=== PATIENT | male | born 1990 | race Caucasian/White ===

== ENCOUNTER 2018-02-15 22:02 | Inpatient (IN) | payer SELFPAY ==
[~2018-02-15] VITALS: Ht 185.4 cm; Wt 83.9 kg
[2018-02-15] MEDS ORDERED: SODIUM CHLORIDE 0.9% 1,000 ML IV ONE (23:15)
[2018-02-16 00:40] LABS: BASOPHILS % 0.3 % (0.0-2.0); EOSINOPHILS % 1.1 % (0.0-5.0); HEMATOCRIT. 43.3 % (42.0-52.0); HEMOGLOBIN. 15.3 g/dL (14.0-18.0); MEAN CORPUSCULAR HEMOGLOBIN 32.5 pg (28.0-32.0); MEAN CORPUSCULAR VOLUME 91.8 fL (80.0-94.0); MEAN PLATELET VOLUME 8.1 fl (7.4-10.4); MONOCYTES % 4.7 % (2.0-8.0); NEUTROPHILS % 77.9 % (40.0-76.0); PLATELET 253 x1000/uL (130-400); RED BLOOD CELL COUNT 4.72 mill/uL (4.7-6.1); RED CELL DISTRIBUTION WIDTH 12.2 % (11.6-14.6)
[2018-02-16 00:44] LABS: CHLORIDE 106 mEq/L (98-107)
[2018-02-16 00:48] LABS: INR 1.1; PARTIAL THROMBOPLASTIN TIME 28.7 sec (23.4-31.0); PROTHROMBIN TIME 11.4 sec (9.4-11.6)
[2018-02-16 00:50] LABS: ETHANOL BLOOD < 10 mg/dL
[2018-02-16 00:53] LABS: AMMONIA 25 uMol/L (<32)
[2018-02-16 01:11] LABS: CLARITY URINE CLEAR (CLEAR); COLOR URINE YELLOW (YELLOW); KETONES URINE NEGATIVE (NEGATIVE); LEUKOCYTE ESTERASE URINE NEGATIVE (NEGATIVE); NITRITE URINE NEGATIVE (NEGATIVE); OCCULT BLOOD URINE NEGATIVE (NEGATIVE); PROTEIN URINE NEGATIVE (NEGATIVE); SPECIFIC GRAVITY URINE 1.018 (1.005-1.030); UROBILINOGEN URINE 0.2 E.U./dL (0.2-1.0)
[2018-02-16 01:24] LABS: *AMPHETAMINES SCREEN URINE NEGATIVE (NEGATIVE); *BARBITURATES SCREEN URINE NEGATIVE (NEGATIVE); *BENZODIAZEPINES SCREEN URINE PRESUMTIVE POSITIVE (NEGATIVE); *COCAINE SCREEN URINE PRESUMTIVE POSITIVE (NEGATIVE); METHADONE URINE SCREEN NEGATIVE (NEGATIVE); OPIATES URINE SCREEN NEGATIVE (NEGATIVE)
[2018-02-16 01:25] LABS: CANNABINOID URINE SCREEN PRESUMTIVE POSITIVE (NEGATIVE); PHENCYCLIDINE URINE SCREEN NEGATIVE (NEGATIVE)
[2018-02-16 08:50] VITALS: BP 116/81
[2018-02-16 09:15] VITALS: BP 116/81
[2018-02-16] MEDS: LEVETIRACETAM 500MG TABLET PO SCH ×2 (11:15→17:10)
[2018-02-16 12:00] VITALS: BP 118/72
[2018-02-16] MEDS ORDERED: VENL-180 PO (12:21)
[2018-02-16] MEDS ORDERED: ALPR0.25 MT (12:25)
[2018-02-16 13:35] LABS: BASOPHILS % 0.5 % (0.0-2.0); EOSINOPHILS % 2.8 % (0.0-5.0); HEMATOCRIT. 41.4 % (42.0-52.0); HEMOGLOBIN. 14.6 g/dL (14.0-18.0); LYMPHOCYTES % 33.4 % (20.0-50.0); MEAN CORPUSCULAR HEMOGLOBIN 32.5 pg (28.0-32.0); MEAN CORPUSCULAR VOLUME 92.2 fL (80.0-94.0); MEAN PLATELET VOLUME 8.3 fl (7.4-10.4); MONOCYTES % 7.8 % (2.0-8.0); NEUTROPHILS % 55.5 % (40.0-76.0); PLATELET 247 x1000/uL (130-400); RED BLOOD CELL COUNT 4.49 mill/uL (4.7-6.1); RED CELL DISTRIBUTION WIDTH 11.8 % (11.6-14.6)
[2018-02-16 13:53] LABS: CHLORIDE 106 mEq/L (98-107)
[2018-02-16 14:03] LABS: CREATINE KINASE 898 IU/L (39-308)
[2018-02-16 16:00] VITALS: BP 109/62
[2018-02-16] MEDS: NICOTINE 7MG PATCH TD SCH (17:10)
[2018-02-16] MEDS ORDERED: SODIUM CHLORIDE 0.9% 1,000 ML IV SCH (17:30)
[2018-02-16 20:00] VITALS: BP 101/66
[2018-02-16] MEDS: LORAZEPAM 2MG/ML CPJ IV PRN (21:03)
[2018-02-16] MEDS ORDERED: ALPR0.25 PO (21:23)
[2018-02-17] VITALS: BP 99/65
[2018-02-17 04:00] VITALS: BP 100/73
[2018-02-17] MEDS: LORAZEPAM 2MG/ML CPJ IV PRN ×2 (05:41→15:28)
[2018-02-17 08:00] VITALS: BP 98/57
[2018-02-17] MEDS: LEVETIRACETAM 500MG TABLET PO SCH ×2 (08:30→16:43)
[2018-02-17] MEDS: NICOTINE 7MG PATCH TD SCH (08:30)
[2018-02-17] MEDS: SODIUM CHLORIDE 0.45% 1,000 ML IV SCH ×2 (08:31→16:10)
[2018-02-17 12:00] VITALS: BP 117/73
[2018-02-17] MEDS ORDERED: NA PHOS,M-B/NA PHOS,DI-BA ENEMA 118ML PR PRN (12:30)
[2018-02-17] MEDS ORDERED: ACETAMINOPHEN 650MG SUPP PR PRN (12:30)
[2018-02-17] MEDS ORDERED: DIPHENHYDRAMINE 50MG/ML VIAL IV PRN (12:30)
[2018-02-17] MEDS ORDERED: GUAIFENESIN 200MG/10ML SUGAR FREE UDC PO PRN (12:30)
[2018-02-17] MEDS ORDERED: DOCUSATE SODIUM 100MG CAPSULE PO PRN (12:30)
[2018-02-17] MEDS ORDERED: ACETAMINOPHEN 325MG TABLET PO PRN (12:30)
[2018-02-17] MEDS ORDERED: ACETAMINOPHEN 650MG/20.3ML UDC GT PRN (12:30)
[2018-02-17] MEDS ORDERED: MAGNESIUM/ALUMINUM HYDROXIDE/SIMETHICONE 30ML UDC PO PRN (12:30)
[2018-02-17] MEDS ORDERED: CLONIDINE 0.1MG TABLET PO PRN (12:30)
[2018-02-17] MEDS ORDERED: HYDROCODONE/ACETAMINOPHEN 5/325MG TABLET PO PRN (12:30)
[2018-02-17] MEDS ORDERED: IPRATROPIUM/ALBUTEROL 0.5-3(2.5)MG/3ML NEB INH PRN (12:30)
[2018-02-17 13:22] LABS: BASOPHILS % 0.7 % (0.0-2.0); EOSINOPHILS % 3.1 % (0.0-5.0); HEMATOCRIT. 40.3 % (42.0-52.0); HEMOGLOBIN. 14.4 g/dL (14.0-18.0); LYMPHOCYTES % 37.7 % (20.0-50.0); MEAN CORPUSCULAR HEMOGLOBIN 32.8 pg (28.0-32.0); MEAN CORPUSCULAR VOLUME 91.5 fL (80.0-94.0); MEAN PLATELET VOLUME 8.5 fl (7.4-10.4); MONOCYTES % 6.3 % (2.0-8.0); NEUTROPHILS % 52.2 % (40.0-76.0); PLATELET 238 x1000/uL (130-400); RED CELL DISTRIBUTION WIDTH 12.1 % (11.6-14.6)
[2018-02-17 13:32] LABS: CHLORIDE 105 mEq/L (98-107)
[2018-02-17 13:42] LABS: CREATINE KINASE 519 IU/L (39-308)
[2018-02-17] MEDS: SODIUM CHLORIDE 0.9% INJ 3ML FLUSH IVF SCH ×2 (14:00→22:00)
[2018-02-17 20:02] VITALS: BP 112/75
[2018-02-17 23:55] VITALS: BP 115/80
[2018-02-18] MEDS: LORAZEPAM 2MG/ML CPJ IV PRN ×7 (01:05→21:26)
[2018-02-18 04:00] VITALS: BP 109/66
[2018-02-18] MEDS: SODIUM CHLORIDE 0.9% INJ 3ML FLUSH IVF SCH ×3 (06:17→21:26)
[2018-02-18 07:26] LABS: BASOPHILS % 0.6 % (0.0-2.0); EOSINOPHILS % 2.9 % (0.0-5.0); HEMATOCRIT. 43.1 % (42.0-52.0); HEMOGLOBIN. 15.3 g/dL (14.0-18.0); LYMPHOCYTES % 38.5 % (20.0-50.0); MEAN CORPUSCULAR HEMOGLOBIN 32.6 pg (28.0-32.0); MEAN PLATELET VOLUME 8.2 fl (7.4-10.4); MONOCYTES % 7.8 % (2.0-8.0); NEUTROPHILS % 50.2 % (40.0-76.0); PLATELET 240 x1000/uL (130-400); RED BLOOD CELL COUNT 4.69 mill/uL (4.7-6.1); RED CELL DISTRIBUTION WIDTH 12.2 % (11.6-14.6)
[2018-02-18 08:00] VITALS: BP 112/66
[2018-02-18] MEDS: NICOTINE 7MG PATCH TD SCH (08:31)
[2018-02-18] MEDS: LEVETIRACETAM 500MG TABLET PO SCH (08:32)
[2018-02-18 09:20] LABS: CHLORIDE 106 mEq/L (98-107)
[2018-02-18 09:29] LABS: LDL CHOLESTEROL 92 mg/dL (5-100)
[2018-02-18 09:31] LABS: HDL CHOLESTEROL 39 mg/dL (40-59)
[2018-02-18] MEDS: SODIUM CHLORIDE 0.45% 1,000 ML IV SCH (10:48)
[2018-02-18 12:00] VITALS: BP 112/76
[2018-02-18 16:00] VITALS: BP 113/57
[2018-02-18] MEDS ORDERED: LEVETIRACETAM 250MG TABLET PO SCH (17:00)
[2018-02-18 20:00] VITALS: BP 121/74
[2018-02-19] VITALS (7 sets, daily range): BP systolic 104–143; BP diastolic 65–114
[2018-02-19] MEDS: SODIUM CHLORIDE 0.45% 1,000 ML IV SCH ×2 (02:48→18:35)
[2018-02-19] MEDS: SODIUM CHLORIDE 0.9% INJ 3ML FLUSH IVF SCH ×3 (05:55→22:04)
[2018-02-19] MEDS: LORAZEPAM 2MG/ML CPJ IV PRN ×2 (07:47→19:00)
[2018-02-19] MEDS ORDERED: LEVETIRACETAM 500MG TABLET PO SCH (09:30)
[2018-02-19] MEDS ORDERED: LEVOFLOXACIN 500MG TABLET PO SCH (09:30)
[2018-02-19] MEDS: LEVETIRACETAM 500MG TABLET PO SCH ×2 (09:53→21:37)
[2018-02-19] MEDS: NICOTINE 7MG PATCH TD SCH (09:55)
[2018-02-19] MEDS ORDERED: PHENYTOIN SODIUM 300 MG in SODIUM CHLORIDE 0.9% 50 ML IV SCH (10:00)
[2018-02-19] MEDS: LAMOTRIGINE 25MG TABLET PO SCH ×2 (10:37→21:36)
[2018-02-19 13:35] LABS: BASOPHILS % 0.6 % (0.0-2.0); EOSINOPHILS % 1.4 % (0.0-5.0); HEMATOCRIT. 46.6 % (42.0-52.0); HEMOGLOBIN. 16.5 g/dL (14.0-18.0); LYMPHOCYTES % 29.6 % (20.0-50.0); MEAN CORPUSCULAR HEMOGLOBIN 32.3 pg (28.0-32.0); MEAN CORPUSCULAR VOLUME 91.2 fL (80.0-94.0); MEAN PLATELET VOLUME 8.7 fl (7.4-10.4); MONOCYTES % 7.1 % (2.0-8.0); NEUTROPHILS % 61.3 % (40.0-76.0); PLATELET 280 x1000/uL (130-400); RED BLOOD CELL COUNT 5.11 mill/uL (4.7-6.1)
[2018-02-19 13:54] LABS: CHLORIDE 103 mEq/L (98-107)
[2018-02-19] MEDS: PHENYTOIN SODIUM EXTENDED 100MG CAPSULE PO SCH ×2 (14:17→22:04)
[2018-02-19] MEDS: MIRTAZAPINE 15MG TABLET PO SCH (21:36)
[2018-02-20] VITALS: BP 103/64
[2018-02-20 04:00] VITALS: BP 115/66
[2018-02-20] MEDS: SODIUM CHLORIDE 0.9% INJ 3ML FLUSH IVF SCH ×3 (05:14→22:12)
[2018-02-20] MEDS: PHENYTOIN SODIUM EXTENDED 100MG CAPSULE PO SCH ×3 (05:14→22:12)
[2018-02-20 08:00] VITALS: BP 111/76
[2018-02-20] MEDS: LEVETIRACETAM 500MG TABLET PO SCH ×2 (08:21→20:43)
[2018-02-20] MEDS: NICOTINE 7MG PATCH TD SCH (08:21)
[2018-02-20] MEDS: LAMOTRIGINE 25MG TABLET PO SCH ×2 (08:21→20:43)
[2018-02-20] MEDS: LORAZEPAM 2MG/ML CPJ IV PRN ×2 (11:30→22:12)
[2018-02-20 12:00] VITALS: BP 115/68
[2018-02-20] MEDS: SODIUM CHLORIDE 0.45% 1,000 ML IV SCH (12:08)
[2018-02-20] MEDS ORDERED: LORAZEPAM 2MG/ML CPJ IV NR (15:30)
[2018-02-20 17:30] VITALS: BP 117/74
[2018-02-20 20:00] VITALS: BP 107/63
[2018-02-20] MEDS: MIRTAZAPINE 15MG TABLET PO SCH (20:43)
[2018-02-21] VITALS: BP 100/61
[2018-02-21 04:00] VITALS: BP 108/72
[2018-02-21] MEDS: SODIUM CHLORIDE 0.9% INJ 3ML FLUSH IVF SCH ×3 (05:51→21:58)
[2018-02-21] MEDS: PHENYTOIN SODIUM EXTENDED 100MG CAPSULE PO SCH ×3 (05:51→21:58)
[2018-02-21 08:00] VITALS: BP 111/73
[2018-02-21] MEDS: LAMOTRIGINE 25MG TABLET PO SCH ×2 (08:56→20:31)
[2018-02-21] MEDS: LEVETIRACETAM 500MG TABLET PO SCH ×2 (08:56→20:31)
[2018-02-21] MEDS: NICOTINE 7MG PATCH TD SCH (08:57)
[2018-02-21] MEDS: LORAZEPAM 2MG/ML CPJ IV PRN (11:06)
[2018-02-21 12:00] VITALS: BP 115/69
[2018-02-21] MEDS ORDERED: LAM25 PO (12:32)
[2018-02-21] MEDS ORDERED: MIRT15TA6 PO (12:32)
[2018-02-21] MEDS ORDERED: KEPP500 PO (12:32)
[2018-02-21 16:00] VITALS: BP 119/68
[2018-02-21] MEDS ORDERED: LORAZEPAM 1MG TABLET PO PRN (17:45)
[2018-02-21] MEDS ORDERED: LORAZEPAM 2MG/ML CPJ IM PRN (17:45)
[2018-02-21 20:00] VITALS: BP 123/68
[2018-02-21] MEDS: MIRTAZAPINE 15MG TABLET PO SCH (20:31)
[2018-02-22] VITALS: BP 114/61
[2018-02-22 04:00] VITALS: BP 120/65
[2018-02-22] MEDS: PHENYTOIN SODIUM EXTENDED 100MG CAPSULE PO SCH ×2 (06:20→13:15)
[2018-02-22] MEDS: SODIUM CHLORIDE 0.9% INJ 3ML FLUSH IVF SCH ×2 (06:20→13:15)
[2018-02-22 08:00] VITALS: BP 115/74
[2018-02-22] MEDS: LAMOTRIGINE 25MG TABLET PO SCH (08:22)
[2018-02-22] MEDS: LEVETIRACETAM 500MG TABLET PO SCH (08:23)
[2018-02-22] MEDS: NICOTINE 7MG PATCH TD SCH (08:24)
[2018-02-22 12:00] VITALS: BP 114/77
[2018-02-22 16:00] VITALS: BP 117/69
[2018-02-22 17:41] VITALS: BP 117/69
== END 2018-02-22 18:25 | DRG 812 ==
LOC: ER 22:02 → ENRESERV 02-16 07:10 → ER 02-16 07:41 → 8WST 02-16 08:42
PROVIDERS: ADMIT Family Medicine; ATTEND Family Medicine
PROC: 4A00X4Z Measurement of Central Nervous Electrical Activity, External Approach (ICD-10-PCS; principal; 2018-02-20)
DX: T43.202A Poisoning by unspecified antidepressants, intentional self-harm, initial encounter (principal); R45.851 Suicidal ideations; R56.9 Unspecified convulsions; F17.210 Nicotine dependence, cigarettes, uncomplicated; Z60.2 Problems related to living alone; F32.9 Major depressive disorder, single episode, unspecified; E66.9 Obesity, unspecified; F41.9 Anxiety disorder, unspecified; Z81.8 Family history of other mental and behavioral disorders; Z68.24 Body mass index [BMI] 24.0-24.9, adult; Z79.2 Long term (current) use of antibiotics; Z79.899 Other long term (current) drug therapy; Y92.89 Other specified places as the place of occurrence of the external cause
CPT/HCPCS: 36415; 70450; 80048; 80053; 80061; 80076; 80305; 80307; 80329; 81003; 82140; 82550; 85025; 85610; 85730; 93005; 99291; G0482; J1165; J2060; J7030

== ENCOUNTER 2018-02-26 21:14 | Emergency (ER) | payer SELFPAY ==
[~2018-02-26] VITALS: Ht 172.7 cm; Wt 73.0 kg
[~2018-02-26 21:14] MED LIST: ALPR0.25 PO; VENL-180 PO
[2018-02-27] MEDS ORDERED: LEVETIRACETAM 500MG PREMIX 100 ML IV ONE (00:45)
[2018-02-27 02:17] VITALS: BP 116/75
== END 2018-02-27 02:56 | disposition home or self-care (01) ==
LOC: ER 21:14
DX: R56.9 Unspecified convulsions (principal); F32.9 Major depressive disorder, single episode, unspecified
CPT/HCPCS: 96365; 99284; J1953; Z7610

== ENCOUNTER 2018-02-27 12:56 | Emergency (ER) | payer SELFPAY ==
[~2018-02-27] VITALS: Ht 185.4 cm; Wt 78.9 kg
[2018-02-27 14:32] LABS: EOSINOPHILS % 1.1 % (0.0-5.0); HEMATOCRIT. 46.6 % (42.0-52.0); HEMOGLOBIN. 16.1 g/dL (14.0-18.0); LYMPHOCYTES % 28.2 % (20.0-50.0); MEAN CORPUSCULAR HEMOGLOBIN 32.2 pg (28.0-32.0); MEAN CORPUSCULAR VOLUME 93.3 fL (80.0-94.0); MEAN PLATELET VOLUME 8.1 fl (7.4-10.4); MONOCYTES % 7.8 % (2.0-8.0); NEUTROPHILS % 61.9 % (40.0-76.0); PLATELET 262 x1000/uL (130-400); RED BLOOD CELL COUNT 4.99 mill/uL (4.7-6.1); RED CELL DISTRIBUTION WIDTH 12.3 % (11.6-14.6)
[2018-02-27 14:38] LABS: CHLORIDE 103 mEq/L (98-107)
[2018-02-27 14:42] LABS: ETHANOL BLOOD < 10 mg/dL
[2018-02-27] MEDS ORDERED: LEVETIRACETAM 500MG TABLET PO ONE (15:00)
[2018-02-27 15:07] LABS: CLARITY URINE CLEAR (CLEAR); COLOR URINE YELLOW (YELLOW); KETONES URINE TRACE (NEGATIVE); LEUKOCYTE ESTERASE URINE NEGATIVE (NEGATIVE); NITRITE URINE NEGATIVE (NEGATIVE); OCCULT BLOOD URINE NEGATIVE (NEGATIVE); PH URINE 6.5 (4.5-8.0); PROTEIN URINE NEGATIVE (NEGATIVE); SPECIFIC GRAVITY URINE 1.008 (1.005-1.030); UROBILINOGEN URINE 0.2 E.U./dL (0.2-1.0)
[2018-02-27 15:18] LABS: *AMPHETAMINES SCREEN URINE NEGATIVE (NEGATIVE); *BARBITURATES SCREEN URINE NEGATIVE (NEGATIVE); *BENZODIAZEPINES SCREEN URINE PRESUMTIVE POSITIVE (NEGATIVE); *COCAINE SCREEN URINE NEGATIVE (NEGATIVE); METHADONE URINE SCREEN NEGATIVE (NEGATIVE)
[2018-02-27 15:20] LABS: CANNABINOID URINE SCREEN PRESUMTIVE POSITIVE (NEGATIVE); OPIATES URINE SCREEN NEGATIVE (NEGATIVE); PHENCYCLIDINE URINE SCREEN NEGATIVE (NEGATIVE)
[2018-02-27] MEDS ORDERED: PHENYTOIN SODIUM EXTENDED 100MG CAPSULE PO ONE (16:00)
[2018-02-28 01:30] VITALS: BP 140/98
== END 2018-02-28 02:15 | disposition home or self-care (01) ==
LOC: ER 13:48
DX: R45.851 Suicidal ideations (principal); F32.9 Major depressive disorder, single episode, unspecified; F41.9 Anxiety disorder, unspecified; R56.9 Unspecified convulsions; F12.10 Cannabis abuse, uncomplicated; F19.10 Other psychoactive substance abuse, uncomplicated
CPT/HCPCS: 36415; 80053; 80185; 80305; 80307; 80329; 81003; 84443; 85025; 99284; G0482; Z7610